=== PATIENT | male | born 1980 | race Caucasian/White ===

== ENCOUNTER 2017-07-22 17:44 | Emergency (ER) | payer OTHER ==
--- NOTE | 2017-07-22 17:55 | ER Report ---
History and Physical Time Seen By MD: 17:55 Hx. of Stated Complaint: LEFT LEG/CALF RED AND SWOLLEN FOR A WEEK. WENT TO URGENT CARE A WEEK AGO WHEN IT STARTED. NOT GETTING BETTER HPI/ROS CHIEF COMPLAINT: Left calf swelling, erythema HISTORY OF PRESENT ILLNESS: 37-year-old male patient presents to emergency room with complaint of left calf swelling and erythema. Patient states this been going on for the past week. He states he did see a provider at an urgent care which prescribed him antibiotics. He states that that was last . He states he's had no improvement since then. He denies having any fevers, chills, nausea, vomiting or diarrhea. Patient states that he has been taking the medication as prescribed. He states that the redness seems to gotten worse as well as swelling. Patient states he has no pain with dorsiflexion of the foot. REVIEW OF SYSTEMS: Respiratory: No cough, no dyspnea. Cardiovascular: No chest pain, no palpitations. Gastrointestinal: No vomiting, no abdominal pain. Musculoskeletal: No back pain. Allergies: Coded Allergies: No Known Drug Allergies (Unverified , 07/22/17) Home Meds Active Scripts Clindamycin Hcl (CLINDAMYCIN HCL) 300 Mg Capsule, 300 MG PO Q6H, #38 CAPSULE Prov:GINI ACOSTA 07/22/17 Past Medical/Surgical History Patient has a past medical history of psoriasis. Patient denies any surgical history. Reviewed Nurses Notes: Yes Hx Substance Use Disorder: No Hx Alcohol Use: No Constitutional Vital Sign - Last 24 Hours 07/22/17 07/22/17 07/22/17 07/22/17 17:47 17:49 17:59 18:00 Temp 98.2 Pulse 104 105 Resp 12 B/P (MAP) 134/88 134/88 (103) 121/81 (94) Pulse Ox 93 94 O2 Delivery Room Air 07/22/17 07/22/17 07/22/17 07/22/17 18:14 18:30 19:00 19:20 Pulse 101 ??? B/P (MAP) ???/??? (166) ???/??? (1664) Pulse Ox 92 07/22/17 07/22/17 07/22/17 07/22/17 19:30 20:10 20:20 20:25 Pulse 93 92 B/P (MAP) ???/??? (1665) 126/80 (95) Pulse Ox 91 92 07/22/17 07/22/17 07/22/17 07/22/17 20:30 20:40 20:55 21:00 Pulse 91 92 B/P (MAP) 117/107 (110) 129/81 (97) Pulse Ox 91 07/22/17 07/22/17 21:10 21:13 Pulse 95 B/P (MAP) 126/81 (96) Pulse Ox 92 Intake and Output 07/22/17 07/22/17 07/23/17 15:00 23:00 07:00 Intake Total 1100 ml Balance 1100 ml Physical Exam General Appearance: The patient is alert, has no immediate need for airway protection and no current signs of toxicity. Respiratory: Chest is non tender, lungs are clear to auscultation. Cardiac: regular rate and rhythm Gastrointestinal: Abdomen is soft and non tender, no masses, bowel sounds normal. Musculoskeletal: Neck: Neck is supple and non tender. Extremities have full range of motion and are non tender. Left leg is erythematous, warm to the touch, swollen. He does have 2+ pitting edema in the lower extremity Skin: No rashes or lesions. DIFFERENTIAL DIAGNOSIS: After history and physical exam differential diagnosis was considered for DVT, cellulitis Medical Decision Making Data Points Result Diagram: 07/22/17182807/22/171828 Laboratory Hematology Test 07/22/17 18:29 Red Blood Count 4.89 M/uL (4.00-5.60) Mean Corpuscular Volume 88.1 fL (80.0-96.0) Mean Corpuscular Hemoglobin 30.4 pg (26.0-33.0) Mean Corpuscular Hemoglobin Concent 34.6 g/dL (32.0-36.0) Red Cell Distribution Width 13.0 % (11.5-14.5) Mean Platelet Volume 8.6 fL (7.2-11.1) Neutrophils (%) (Auto) 59.7 % (39.4-72.5) Lymphocytes (%) (Auto) 27.7 % (17.6-49.6) Monocytes (%) (Auto) 9.1 % (4.1-12.4) Eosinophils (%) (Auto) 2.2 % (0.4-6.7) Basophils (%) (Auto) 1.3 % (0.3-1.4) Nucleated RBC Relative Count (auto) 0.1 /100WBC Neutrophils # (Auto) 3.4 K/uL (2.0-7.4) Lymphocytes # (Auto) 1.6 K/uL (1.3-3.6) Monocytes # (Auto) 0.5 K/uL (0.3-1.0) Eosinophils # (Auto) 0.1 K/uL (0.0-0.5) Basophils # (Auto) 0.1 K/uL (0.0-0.1) Nucleated RBC Absolute Count (auto) 0.00 K/uL Sodium Level 135 mmol/L (137-145) Potassium Level 3.7 mmol/L (3.5-5.0) Chloride Level 100 mmol/L (98-107) Carbon Dioxide Level 27 mmol/L (22-30) Blood Urea Nitrogen 13 mg/dl (9-21) Creatinine 1.40 mg/dl (0.66-1.25) Glomerular Filtration Rate Calc 56.4 Random Glucose 122 mg/dl (75-110) Calcium Level 9.0 mg/dl (8.4-10.2) Total Bilirubin 0.6 mg/dl (0.2-1.3) Aspartate Amino Transf (AST/SGOT) 68 U/L (0-35) Alanine Aminotransferase (ALT/SGPT) 147 U/L (0-56) Alkaline Phosphatase 142 U/L (0-126) Total Protein 7.6 gm/dl (6.3-8.2) Albumin 4.2 g/dl (3.5-5.0) Chemistry Test 07/22/17 18:29 White Blood Count 5.6 k/uL (4.5-11.0) Red Blood Count 4.89 M/uL (4.00-5.60) Hemoglobin 14.9 g/dL (14.0-18.0) Hematocrit 43.1 % (42.0-52.0) Mean Corpuscular Volume 88.1 fL (80.0-96.0) Mean Corpuscular Hemoglobin 30.4 pg (26.0-33.0) Mean Corpuscular Hemoglobin Concent 34.6 g/dL (32.0-36.0) Red Cell Distribution Width 13.0 % (11.5-14.5) Platelet Count 343 K/uL (150-450) Mean Platelet Volume 8.6 fL (7.2-11.1) Neutrophils (%) (Auto) 59.7 % (39.4-72.5) Lymphocytes (%) (Auto) 27.7 % (17.6-49.6) Monocytes (%) (Auto) 9.1 % (4.1-12.4) Eosinophils (%) (Auto) 2.2 % (0.4-6.7) Basophils (%) (Auto) 1.3 % (0.3-1.4) Nucleated RBC Relative Count (auto) 0.1 /100WBC Neutrophils # (Auto) 3.4 K/uL (2.0-7.4) Lymphocytes # (Auto) 1.6 K/uL (1.3-3.6) Monocytes # (Auto) 0.5 K/uL (0.3-1.0) Eosinophils # (Auto) 0.1 K/uL (0.0-0.5) Basophils # (Auto) 0.1 K/uL (0.0-0.1) Nucleated RBC Absolute Count (auto) 0.00 K/uL Glomerular Filtration Rate Calc 56.4 Calcium Level 9.0 mg/dl (8.4-10.2) Total Bilirubin 0.6 mg/dl (0.2-1.3) Aspartate Amino Transf (AST/SGOT) 68 U/L (0-35) Alanine Aminotransferase (ALT/SGPT) 147 U/L (0-56) Alkaline Phosphatase 142 U/L (0-126) Total Protein 7.6 gm/dl (6.3-8.2) Albumin 4.2 g/dl (3.5-5.0) EKG/Imaging Imaging EXAMINATION: Left Lower Extremity Venous Ultrasound HISTORY: Edema and swelling. TECHNIQUE: Ultrasound evaluation of the left lower extremity veins was performed with color and spectral Doppler and compression views. COMPARISON: None. FINDINGS: The left common femoral, femoral, proximal deep femoral, popliteal, and segmentally visualized deep calf veins are patent and compressible, without evidence of intraluminal thrombus. The visualized upper greater saphenous vein is patent. There is a small elongated collection along the superficial soft tissues of the left mcdaniel in the area of swelling, measuring 2.5 x 0.6 x 2.9 cm. IMPRESSION: 1. No evidence of DVT in the left leg. 2. Small elongated collection the superficial soft tissues of the mid left mcdaniel. This may represent a soft tissue hematoma but has a nonspecific ultrasound appearance. Report Dictated By: Bhavin Abraham MD at 07/22/2017 8:05 PM Report E-Signed By: Bhavin Abraham MD at 07/22/2017 8:08 PM ED Course/Re-evaluation ED Course Patient was admitted to exam room, history and physical were obtained. Differential diagnoses were considered. On examination patient has erythema to the left lower leg, is very swollen, with 2+ pitting edema. An ultrasound was done of the leg which was negative for DVT. A CBC and CMP were done. Results were unremarkable except the patient did have an elevated creatinine of 1.4. Patient did receive a liter of normal saline. With the normal ultrasound believe that we are looking at a cellulitis. Patient has a history of psoriasis and apparently had scratched off the psoriatic lesions. I believe that is the source of the infection. Patient had been on Bactrim which was unaffected. We will ahead and switch him to clindamycin. He received a dose of IV clindamycin here in the emergency room. We will have him follow-up in 72 hours if there is no improvement. If there is no improvement at that time I believe we'll have to look at doing IV antibiotic treatment. I discussed this with the patient who verbalized understanding and agreement with plan. Decision to Disposition Date: Jul 22, 2017 Decision to Disposition Time: 20:42 Depart Departure Latest Vital Signs Vital Signs Date Time Temp Pulse Resp B/P (MAP) Pulse Ox O2 Delivery O2 Flow Rate FiO2 07/22/17 21:13 126/81 (96) 07/22/17 21:10 95 92 07/22/17 17:47 98.2 12 Room Air Impression: Primary Impression: Cellulitis Condition: Improved Disposition: HOME OR SELF-CARE New Scripts Clindamycin Hcl (CLINDAMYCIN HCL) 300 Mg Capsule 300 MG PO Q6H, #38 CAPSULE Prov: GINI ACOSTA CARLOS 07/22/17 Patient Instructions: Cellulitis (ED) Additional Instructions: Limit activity by pain. Get plenty of rest. Elevate the leg when you are not active. If there is no improvement in the next 72 hours, then comeback to the ER. At that time we would need to consider IV antibiotics. Problem Qualifiers Primary Impression: Cellulitis Site of cellulitis: extremity Site of cellulitis of extremity: lower extremity Laterality: left Qualified Codes: L03.116 - Cellulitis of left lower limb GINI ACOSTA Jul 22, 2017 17:55
[2017-07-22 18:41] LABS: PLATELET COUNT, AUTOMATED 343 K/uL (150-450)
[2017-07-22] MEDS ORDERED: NS(*) 0.9% 1000 ML BAG 1,000 ML IV ONE (19:00)
--- NOTE | 2017-07-22 20:12 | RADIOLOGY IMAGING REPORT ---
FACILITY: [facility] PATIENT NAME: Brandon Covington : 1980 MR: [id number] V: [id number] EXAM DATE: ORDERING PHYSICIAN: GINI ACOSTA TECHNOLOGIST: Location: [facility] Patient: Brandon Covington : 1980 Visit/Account:[id number] Date of Sevice: 07/22/2017 EXAMINATION: Left Lower Extremity Venous Ultrasound HISTORY: Edema and swelling. TECHNIQUE: Ultrasound evaluation of the left lower extremity veins was performed with color and spec tral Doppler and compression views. COMPARISON: None. FINDINGS: The left common femoral, femoral, proximal deep femoral, popliteal, and segmentally visualized deep c detention veins are patent and compressible, without evidence of intraluminal thrombus. The visualized upp er greater saphenous vein is patent. There is a small elongated collection along the superficial soft tissues of the left mcdaniel in the area of swelling, measuring 2.5 x 0.6 x 2.9 cm. IMPRESSION: 1. No evidence of DVT in the left leg. 2. Small elongated collection the superficial soft tissues of the mid left mcdaniel. This may represent a soft tissue hematoma but has a nonspecific ultrasound appearance. Report Dictated By: Bhavin Abraham MD at 07/22/2017 8:05 PM Report E-Signed By: Bhavin Abraham MD at 07/22/2017 8:08 PM WSN:[id number]
[2017-07-22] MEDS ORDERED: CLINDAMYCIN 150 MG CAP PO ONE (20:25)
[2017-07-22] MEDS ORDERED: CLINDAMYCIN(*) 300 MG/2 ML VI 300 MG in NS(*) 0.9% 100 ML BAG 100 ML IVPB ONE (20:25)
[2017-07-22 21:13] VITALS: BP 126/81
[2017-07-22] MEDS ORDERED: CLIN300C99 PO (21:21)
== END 2017-07-22 21:30 | disposition home or self-care (01) ==
LOC: ER 18:01
DX: L03.116 Cellulitis of left lower limb (principal)
CPT/HCPCS: 85025; 93971; 96361; 96365; 99284; J3490; J7030; J7050; 82040; 82247; 82310; 82374; 82435; 82565; 82947; 84075; 84132; 84155; 84295; 84450; 84460; 84520